=== PATIENT | male | born 1980 | race Caucasian/White ===

== ENCOUNTER 2024-12-31 17:17 | Emergency (ER) | payer OTHER, SELFPAY ==
[2024-12-31 17:28] VITALS: BP 159/100; PULSE 71; RESP 16; TEMP 37; O2SAT 99
--- NOTE | 2024-12-31 17:45 | DI.CT_ITS ---
Exam(s) CT ABDOMEN PELVIS W EXAM: CT ABDOMEN PELVIS W CLINICAL HISTORY: Abd pain, Radiates to groin. TECHNIQUE: Imaging Protocol: Axial computed tomography images with coronal and sagittal reformatted images were created and reviewed CONTRAST MATERIAL: Intravenous: Omnipaque 350 Contrast volume:100 ml Oral: yes no COMPARISON: No exams were available for comparison FINDINGS: ABDOMEN and PELVIS: Lung Bases: No acute findings. Liver: Normal density. No suspicious mass. Gallbladder and biliary tract: No radiodense calculus. No wall thickening or pericholecystic fluid. No biliary dilation. Pancreas: Normal density. No abnormal calcifications or inflammatory process. No evidence of mass. Spleen: Normal. Kidneys: Normal size, contour and axis. Small nonobstructing stones at the upper and lower poles of the left kidney. Nonobstructing stones mid right kidney.. No obstructive uropathy. Multiple bilateral cysts. No suspicious masses seen. Adrenal glands: No masses seen. Vasculature: Abdominal aorta non-dilated. Soft tissues: Fat containing right inguinal hernia with fat extending down to the level of the upper scrotum. 4 cm x 2.8 cm by 8 cm. Small amount of fluid. No findings to suggest incarceration. Bladder: No gross wall thickening. No calculi.No focal mass. Bowel: No obstruction. No bowel wall thickening. Appendix normal. Diverticulosis of the descending and sigmoid colon. Peritoneal cavity: No ascites. No focal collection. No mesenteric inflammatory response. No free air. Bones: Unremarkable for age. Reproductive organs: Unremarkable. Lymph nodes: No pathologically enlarged lymph nodes. IMPRESSION:: Fat containing right inguinal hernia. The preliminary [facility] report was reviewed. RADIATION DOSE DELIVERED: 370.18mGy.cm Total DLP DATA REPOSITORY: All CT scans at this facility are submitted to the National Radiology Data Registry (NRDR) Dose Index Registry (DIR) with the [employer] ([employer]). RADIATION OPTIMIZATION: All CT scans at this facility use at least one of these dose optimization techniques: automated exposure control; mA and/or kV adjustment per patient size (includes targeted exams where dose is matched to clinical indication); or iterative reconstruction.
[2024-12-31 18:02] LABS: Abs Immature Grans 0.02 10^3/uL (0.0-0.06); HCT 49.3 % (40.0-50.0); HGB 16.5 g/dL (13.5-17.5); Immature Grans % 0.3 %; MCH 31.1 pg (27.0-33.0); MCHC 33.5 % (32.0-36.0); MCV 93 fL (80-95); MPV 10.6 fL (8.0-11.0); Platelet Count 178 10^3/uL (130-400); RBC 5.31 10^6/uL (4.36-5.78); RDW 11.7 % (11.8-14.1); RDW-SD 40.0 fL; WBC 7.84 10^3/uL (4.4-10.8)
--- NOTE | 2024-12-31 18:04 | ED.GENADUL_ITS ---
Discharge Plan Disposition Patient Disposition: Home Condition: Stable Discharge Details Clinical Impression: Inguinal hernia, right Primary Care Provider: Nelly,Local ED Provider: Natalie Ochoa Discharge Instructions Instructions: Groin Hernia (DC) Additional Instructions: At this time no evidence for bowel obstruction, or incarcerated hernia which is bowel containing hernia. You have some fat in the hernia. Please take a stool softener such as Colace or similar daily over the next 7 to 10 days. Please follow-up with your primary care provider or general surgery at home. Follow up with primary care provider/general surgery in 7-10 days. Return to ED sooner if any worsening fever, worsening abdominal pain not relieved by Tylenol or ibuprofen, vomiting, or concerns. Please take Tylenol or Ibuprofen with food every 4-6 hours as needed for pain and swelling. Thank you for allowing us to care for you today. Referrals: Primary Care Provider [Outside] - 1 week Referral Note: Right inguinal hernia, also call general surgery Discharge Data Discharge Date/Time-TO BE ENTERED AT DEPARTURE: 12/31/24 21:36 HPI General Mode of arrival: ambulatory . Date/Time Provider Initiated Documentation: 12/31/24 17:24 . Limitations to Documentation: no limitations . Information obtained by: patient, RN notes reviewed and old records reviewed . HPI Narrative: 44-year-old male presents to the ER with chief complaint of mid abdominal pain which radiates down into his right lower quadrant and groin. This began approximately an hour and a half ago while having a bowel movement. He states that he was constipated and was straining when he had acute stabbing sharp pain. Now it is concentrated in the right lower quadrant. He states he does have some urinary hesitancy. He is nauseous, no vomiting no diarrhea no blood in his stool or mucus reported. Does have a history of a left inguinal hernia repair at age 10. Denies any chest pain shortness of breath. He is slightly hypertensive upon arrival. On exam abdomen is soft, nondistended tender with palpation to the right upper quadrant right lower quadrant. No masses palpated. Related Data Allergies Allergy/AdvReac Type Severity Reaction Status Date / Time No Known Allergies Allergy Verified 12/31/24 17:34 General Stated Complaint: Abd Prob YOVANNY: 3 Review of Systems All systems reviewed & are unremarkable except as noted in HPI and below Gastrointestinal Gastrointestinal: Reports abdominal pain, Denies hematochezia, Reports constipation and Reports nausea Genitourinary Genitourinary: Reports as per HPI and Reports testicular pain Exam Narrative Exam Narrative: Constitutional: Alert and oriented x3. Appears stated age. Normal body habitus. Head: Normocephalic, no trauma. Eyes: Pupils PERRL, , EOM's intact. Eyelids symmetrical without lesions, di scharge, or swelling. Chest: RRR, Normal S1, S2, distal pulses intact. Resp: Lungs clear to auscultation bilaterally, no wheezes, rales, or rhonchi. Abdomen: Soft, non-distended, no masses palpated, tenderness to palpation right upper quadrant right lower quadrant. Right groin. No significant testicle or scrotum erythema or swelling, normoactive bowel sounds all 4 quads. Musculoskeletal: Normal gait, Moves all 4 extremities without difficulty. Skin: No suspicious rashes or lesions. Capillary refill less than 2 sec. Neurologic: Cranial nerves II-XII intact. Alert and oriented x 3. Motor: No deficits noted. Hematologic/Lymphatic: No ecchymosis, no lymphadenopathy. Course Vital Signs Vital signs: Vital Signs Temperature 37.0 C 12/31/24 17:28 Pulse 71 12/31/24 17:28 Respiratory Rate 16 12/31/24 17:28 Blood Pressure 159/100 H 12/31/24 17:28 Pulse Oximetry 99 12/31/24 17:28 Temperature 37.0 C 12/31/24 17:28 Temperature Source Core 12/31/24 17:28 Pulse 71 12/31/24 17:28 Respiratory Rate 16 12/31/24 17:28 Blood Pressure 159/100 H 12/31/24 17:28 Blood Pressure Position Sitting 12/31/24 17:28 Pulse Oximetry 99 12/31/24 17:28 Oxygen Delivery Method Room Air 12/31/24 17:28 Oxygen Flow Rate 0 12/31/24 17:28 Pain Level 8 12/31/24 17:28 Medical Decision Making 44-year-old male presents to the ER with chief complaint of mid abdominal pain which radiates down into his right lower quadrant and groin. This began approximately an hour and a half ago while having a bowel movement. He states that he was constipated and was straining when he had acute stabbing sharp pain. Now it is concentrated in the right lower quadrant. He states he does have some urinary hesitancy. He is nauseous, no vomiting no diarrhea no blood in his stool or mucus reported. Does have a history of a left inguinal hernia repair at age 10. Workup ordered including CBC CMP lipase urinalysis IV 1 L normal saline, 4 mg Zofran [address] abdomen pelvis with IV contrast. CT preliminary result shows a large fat-containing right inguinal hernia extending into the upper right hemiscrotum with trace fluid but no herniated bow el loops. See official result below. There is also multiple bilateral renal cysts largest 3.5 cm on the right. No hydronephrosis. No evidence of urinary tract infection, no leukocytosis CMP largely within normal limits glucose 107. 2021:Patient reevaluation, he reports feeling better, discussed CT results with him and his who verbalized understanding. Discussed home care, follow-up care and strict return instructions. [place] is from out of town discussed to return to the ER for any vomiting fever worsening pain not relieved by Tylenol ibuprofen or concerns. Will give him a Colace here in the department. This text was generated using [employer] dictation system, please disregard any oddities of phrase or misspellings. Imaging Data Radiologic Study: Imaging: CT Scan Radiologist's impression: COMPARISON: No relevant prior studies available. FINDINGS: Lungs: Lung bases clear Stomach and bowel: Stomach partially distended with ingested material. No small bowel dilatation to suggest obstruction. Normal-appearing colon. No evidence of diverticulitis or colitis. Appendix: Normal appendix. Intraperitoneal space: No gross ascites or free air. Vasculature: Normal caliber abdominal aorta. Lymph nodes: No pathologically enlarged mesenteric, retroperitoneal, or pelvic sidewall lymph nodes. Urinary bladder: Urinary bladder partially collapsed but grossly unremarkable, as seen. Reproductive: Normal-appearing prostate gland and seminal vesicles. Bones/joints: No acute fracture seen among the bones of the abdomen or pelvis. Transitional L5 vertebral body, hemisacralized on the left. Soft tissues: 3.5 cm x 3.8 cm x 9.8 cm fat containing right inguinal region hernia extending into the upper right hemiscrotum, also containing trace fluid but no herniated bowel loops. IMPRESSION: 1. 3.5 cm x 3.8 cm x 9.8 cm fat containing right inguinal region h ernia extending into the upper right hemiscrotum, also containing trace fluid but no herniated bowel loops. 2. No acute bowel pathology demonstrated. Thank you for allowing us to participate in the care of your patient. Dictated and Authenticated by: Edgard Nesbitt MD Lab Data Lab results reviewed: Yes I reviewed the patient's lab results. Labs: Laboratory Tests Range/Units 12/31/24 17:55 WBC (4.4-10.8) 10^3/uL 7.84 RBC (4.36-5.78) 10^6/uL 5.31 Hgb (13.5-17.5) g/dL 16.5 Hct (40.0-50.0) % 49.3 MCV (80-95) fL 93 MCH (27.0-33.0) pg 31.1 MCHC (32.0-36.0) % 33.5 RDW (11.8-14.1) % 11.7 L Plt Count (130-400) 10^3/uL 178 MPV (8.0-11.0) fL 10.6 Immature Gran % % 0.3 Neutrophils % % 75.6 Lymphocytes % % 14.2 Monocytes % % 7.4 Eosinophils % % 1.7 Basophils % % 0.8 Nucleated RBC % (0.0-0.3) % 0.0 Absolute Neutrophils (1.2-6.7) 10^3/uL 5.94 Absolute Lymphocytes (1.2-3.4) 10^3/uL 1.11 L Absolute Monocytes (0.1-0.8) 10^3/uL 0.58 Absolute Eosinophils (0.0-0.7) 10^3/uL 0.13 Absolute Basophils (0.0-0.2) 10^3/uL 0.06 Sodium (136-145) mmol/L 142 Potassium (3.5-5.1) mmol/L 4.4 Chloride (98-107) mmol/L 105 Carbon Dioxide (21.0-32.0) mmol/L 31.0 Anion Gap (3-11) mmol/L 6.0 BUN (7-18) mg/dL 16 Creatinine (0.70-1.30) mg/dL 1.1 Est GFR (CKD-EPI 2020) (mL/min/1.73m2) 84.37 Glucose (74-106) mg/dL 107 H Calcium (8.5-10.1) mg/dL 9.4 Magnesium (1.8-2.4) mg/dL 2.3 Total Bilirubin (0.2-1.0) mg/dL 0.6 AST (15-37) U/L 20 ALT (16-63) U/L 24 Alkaline Phosphatase (46-116) U/L 72 Total Protein (6.4-8.2) g/dL 7.3 Albumin (3.4-5.0) g/dL 4.2 Lipase (<78) U/L 33 Urine Color (Yellow) Yellow Urine Clarity (Clear) Sl Cloudy Urine pH (5-8) 7.0 Ur Specific [place] (1.005-1.025) 1.020 Urine Protein (Neg-Trace) mg/dL Negative Urine Ketones (Negative) mg/dL Negative Urine Blood (Negative) Negative Urine Nitrite (Negative) Negative Urine Bilirubin (Negative) Negative Urine Urobilinogen (Up to 0.2) mg/dL 0.2 Ur Leukocyte Esterase (Negative) Negative Urine Glucose (Negative) mg/dL Negative PFSH All Active Problems (Updated 12/31/24 @ 21:09 by Natalie Ochoa NP) Inguinal hernia, right (Acute) Social History Smoking/Tobacco Use Status: Former Tobacco Use Smoking risk assessment performed?: Yes Alcohol Intake: current Alcohol Intake frequency: a few times a month Alcohol type: beer Drug use: Never Substance use type: does not use Housing: house
[2024-12-31 18:17] LABS: ALT 24 U/L (16-63); AST 20 U/L (15-37); Albumin 4.2 g/dL (3.4-5.0); Alkaline Phosphatase 72 U/L (46-116); Anion Gap 6.0 mmol/L (3-11); BUN 16 mg/dL (7-18); Bilirubin, Total 0.6 mg/dL (0.2-1.0); CO2 31.0 mmol/L (21.0-32.0); Calcium 9.4 mg/dL (8.5-10.1); Chloride 105 mmol/L (98-107); Estimated GFR 84.37 (mL/min/1.73m2); Glucose 107 mg/dL (74-106); Lipase 33 U/L (<78); Magnesium 2.3 mg/dL (1.8-2.4); Potassium 4.4 mmol/L (3.5-5.1); Sodium 142 mmol/L (136-145); Total Protein 7.3 g/dL (6.4-8.2)
[2024-12-31] MEDS: MORPHine 10 MG/ML VIAL 2 MG IVP (18:19)
[2024-12-31] MEDS: Ondansetron 4 MG/2 ML VIAL IVP (18:20)
[2024-12-31] MEDS: Normal Saline 1,000 ML 1000 ML IV (18:20)
[2024-12-31 18:27] LABS: Glucose Negative (Negative)
[2024-12-31] MEDS: Omnipaque 350 MG/ML 100 ML BTL IJ (18:43)
[2024-12-31] MEDS: Normal Saline Flush 10 ML SYR IVP (18:44)
[2024-12-31] MEDS: Normal Saline - Diluent 50 ML VIAL IJ (19:08)
--- NOTE | 2024-12-31 20:05 | DI.[facility]_ITS ---
PROCEDURE INFORMATION: Exam: CT Abdomen And Pelvis With Contrast Exam date and time: 12/31/2024 6:41 PM Age: 44 years old Clinical indication: Abdominal pain; Localized; Right lower quadrant (rlq); Prior surgery; Surgery date: 6+ months; Surgery type: Inguinal hernia at age 10; R lower abd pain radiating to groin, PT states a lump is present TECHNIQUE: Imaging protocol: Computed tomography of the abdomen and pelvis with contrast. Radiation optimization: All CT scans at this facility use at least one of these dose optimization techniques: automated exposure control; mA and/or kV adjustment per patient size (includes targeted exams where dose is matched to clinical indication); or iterative reconstruction. Contrast material: OMNIPAQUE 350; Contrast volume: 75 ml; Contrast route: INTRAVENOUS (IV); COMPARISON: No relevant prior studies available. FINDINGS: Lungs: Lung bases clear. Liver: Normal appearing liver. Gallbladder and biliary ducts: Gallbladder partially collapsed. No calcified gallstones seen. No biliary dilatation. Pancreas: Normal appearing pancreas. Spleen: Normal appearing spleen. Adrenal glands: Normal appearing adrenal glands. Kidneys and ureters: Multiple bilateral renal cysts with the largest measuring approximately 3.5 cm on the right. Small indeterminate hypoattenuating bilateral renal lesions, not well characterized by today's exam but statistically most likely additional small cysts. 2 mm nonobstructing left renal calculus. No hydronephrosis or proximal ureterectasis. No obstructing ureteral stones. Stomach and bowel: Stomach partially distended with ingested material. No small bowel dilatation to suggest obstruction. Normal-appearing colon. No evidence of diverticulitis or colitis. Appendix: Normal appendix. Intraperitoneal space: No gross ascites or free air. Vasculature: Normal caliber abdominal aorta. Lymph nodes: No pathologically enlarged mesenteric, retroperitoneal, or pelvic sidewall lymph nodes. Urinary bladder: Urinary bladder partially collapsed but grossly unremarkable, as seen. Reproductive: Normal-appearing prostate gland and seminal vesicles. Bones/joints: No acute fracture seen among the bones of the abdomen or pelvis. Transitional L5 vertebral body, hemisacralized on the left. Soft tissues: 3.5 cm x 3.8 cm x 9.8 cm fat containing right inguinal region hernia extending into the upper right hemiscrotum, also containing trace fluid but no herniated bowel loops. IMPRESSION: 1. 3.5 cm x 3.8 cm x 9.8 cm fat containing right inguinal region hernia extending into the upper right hemiscrotum, also containing trace fluid but no herniated bowel loops. 2. No acute bowel pathology demonstrated. Dictated and Authenticated by: Edgard Nesbitt MD. Orderin Don Estrada MD
[2024-12-31 21:24] VITALS: BP 133/95; PULSE 61; RESP 14; O2SAT 99
== END 2024-12-31 21:36 | disposition home or self-care (01) ==
PROVIDERS: Emergency Provider Registered Nurse Emergency
DX: K40.90 Unilateral inguinal hernia, without obstruction or gangrene, not specified as recurrent (principal); R10.31 Right lower quadrant pain; R11.0 Nausea; R39.11 Hesitancy of micturition; N28.1 Cyst of kidney, acquired
CPT/HCPCS: 99284; 99285; 96374; 96375; 36415; 80053; 83690; 96361; 74177; 81003; 83735; 85025; J2270; J2405; J3490